=== PATIENT | female | born 1965 | race Caucasian/White ===

== ENCOUNTER → 2024-02-01 13:12 | Outpatient (REF) | payer OTHER, SELFPAY | LOC: RAD 13:12 | PROVIDERS: ATTENDING PHYSICIAN Internal Medicine | DX: R53.83 Other fatigue (principal); R06.02 Shortness of breath | CPT/HCPCS: 71046 ==

== ENCOUNTER → 2024-03-21 08:15 | Outpatient (REF) | payer OTHER, SELFPAY | LOC: RSP 08:15 | PROVIDERS: ATTENDING PHYSICIAN Internal Medicine Rheumatology; FAMILY PHYSICIAN Physician Assistant | DX: R06.02 Shortness of breath (principal) | CPT/HCPCS: 94727; 94729; 88738; 94060 ==

== ENCOUNTER → 2024-03-25 10:19 | Outpatient (REF) | payer OTHER, SELFPAY | LOC: RCS 10:19 | PROVIDERS: ATTENDING PHYSICIAN Internal Medicine Rheumatology; FAMILY PHYSICIAN Physician Assistant | DX: R06.02 Shortness of breath (principal) | CPT/HCPCS: 93306 ==

== ENCOUNTER → 2024-05-07 07:12 | Outpatient (REF) | payer OTHER, SELFPAY | LOC: MRI 07:12 | PROVIDERS: ATTENDING PHYSICIAN Internal Medicine; FAMILY PHYSICIAN Physician Assistant | DX: M54.59 Other low back pain (principal); M47.817 Spondylosis without myelopathy or radiculopathy, lumbosacral region; M54.16 Radiculopathy, lumbar region | CPT/HCPCS: 72148 ==

== ENCOUNTER 2025-04-15 22:26 | Emergency (ER) | payer OTHER, SELFPAY ==
[2025-04-15 22:34] VITALS: BP 146/86
[2025-04-16 00:06] VITALS: BP 114/77; BMI 36.5
[2025-04-16 01:08] VITALS: BP 106/57
[2025-04-16 01:14] VITALS: BP 106/57
[2025-04-16 02:57] LABS: Hematocrit 38.3 % (37.0-47.0); Hemoglobin 13.7 g/dL (12.0-16.0); Mean Corp Hgb Conc. 35.8 g/dL (33.0-37.0); Mean Corpuscular Volume 87.6 fL (81.0-99.0); Nucleated Red Blood Cells % 0 %; Platelet Count 214 10^3/uL (130-400); Red Cell Dist. Width 13.2 % (11.5-14.5)
[2025-04-16 03:17] LABS: ALT (SGPT) 24 U/L (0-35); AST (SGOT) 22 U/L (14-36); Albumin 4.3 g/dl (3.5-5.0); Alkaline Phosphatase 85 U/L (38-126); Blood Urea Nitrogen 20 mg/dl (7-17); Calcium 9.1 mg/dl (8.4-10.2); Carbon Dioxide 27 mmol/L (22-30); Chloride 106 mmol/L (98-107); Estimated Creatinine Clearance 86 ml/min; Glucose 101 mg/dl (70-99); Potassium 3.3 mmol/L (3.5-5.1); Sodium 138 mmol/L (135-145); Total Protein 7.0 g/dl (6.3-8.2); eGFR > 60.00
[2025-04-16 03:30] VITALS: BP 121/67
--- NOTE | 2025-04-16 03:31 | ED.GENMED ---
History of Present Illness
General
Chief Complaint: Vascular Symptoms
Source: patient
Exam Limitations: none
Time Seen by Provider: 04/16/25 01:46
Nursing documentation reviewed up to this point in time: agreed with
History of Present Illness
History of Present Illness:
Note:
CHIEF COMPLAINT(S)
Left arm pain and swelling, with a concern for circulation issues.
HISTORY OF PRESENT ILLNESS
The patient is a 59-year-old female who presented with discomfort and swelling in the left arm, described as a burning pain associated with a prominent, bulging vein observed after cleaning up while outside with her dog. The pain and swelling have
been present since this morning. The patient recounted that the vein appeared bent and swollen for approximately a half hour. She expressed concern that the appearance of the vein and subsequent bruising may indicate an underlying issue. The patient
denied any trauma, fall, or heavy lifting prior to the symptom onset. Additionally, she reported episodic leg cramping, particularly noted today while out with her grandchildren, making walking challenging. She mentioned previous episodes of low
potassium levels and wondered if this could be related.
PHYSICAL EXAM
- Cardiovascular: Palpable pulses were evaluated and described as great pulses by the patient.
- Nursing notes reviewed and vital signs reviewed.
PROBLEM LIST
Acute Problems:
- Left arm pain and swelling
- Episodic leg cramping
PLAN
- Apply a splint to the affected arm to minimize movement.
- Schedule follow-up with a vascular specialist to assess circulation and rule out venous issues.
- Perform laboratory work to evaluate the possibility of low potassium and other potential causes of muscle cramps.
DIFFERENTIAL DIAGNOSIS
The Differential Diagnosis includes, in no particular order and is not limited to:
- Superficial vein thrombophlebitis
- Hematoma
- Deep vein thrombosis
- Venous insufficiency
- Peripheral artery disease
- Electrolyte imbalance (e.g., hypokalemia)
- Muscle strain
- Varicose veins
- Raynauds phenomenon
- Neuropathy
CARE-UPDATE
04/16/25 - 03:48
Ultrasound results were normal. Patient reports increased difficulty with ambulation due to leg discomfort, experiencing pain while walking short distances. Although there is no current chest pain, the patient experienced transient shortness of
breath perceived to be anxiety-related . The patient also noted persistent headaches potentially related to a known pituitary tumor, which have been more bothersome today. Discussed symptoms may require further assessment by vascular surgery, given
possible link to leg discomfort. No immediate need for medication for headache as patient prefers to manage with [id number] options later.
EKG
My independent EKG interpretation is:
- Rhythm: Normal sinus rhythm
- Heart Rate: 68 beats per minute
- Intervals: Normal
- [place]: Normal
- Abnormalities: None observed
- Overall Impression: Normal EKG
Disposition:
SUMMARY OF ENCOUNTER
The patient is a 59-year-old female presenting with wrist swelling and hematoma. She expressed concern about possible circulation issues, although she was previously evaluated and was negative for deep vein thrombosis (DVT). The patient also
reported experiencing muscle aches and suspected an electrolyte imbalance, for which she had a history of low potassium. She received potassium supplementation and is now feeling better. Despite the symptoms, the patient declined further imaging
studies at this time. Additionally, the patient has a known pituitary tumor and is under the care of her family physician for this condition. Patient does understand that without further imaging at this time potential diagnosis can be missed.
PLAN
- Monitor the affected arms swelling and pain, using a splint to reduce movement.
- Follow up with a vascular specialist as previously recommended to further assess and rule out any venous issues.
- Continue following up with her family physician regarding the pituitary tumor.
- Encourage maintaining electrolyte balance, considering her history of low potassium levels.
INDEPENDENT REVIEW OF LABS AND INTERPRETATION OF TESTS
My independent review of patients potassium levels showed they were slightly low, consistent with her history of low potassium.
PATIENT EDUCATION AND COUNSELING
The patient was informed about the importance of monitoring symptoms and seeking further care if the swelling or pain increases. She was also educated on maintaining electrolyte balance and advised to continue her follow-up with her family doctor
for her pituitary tumor.
FOLLOW-UP INSTRUCTIONS
The patient was advised to schedule a follow-up with a vascular specialist to assess circulation concerns further. She should also follow up with her primary care provider to monitor her pituitary condition and overall health.
MEDICAL DECISION MAKING
-Complexity of Data Reviewed: Chronic conditions affecting care include the pituitary tumor and history of electrolyte imbalance. Differential diagnoses considered include superficial vein thrombophlebitis, hematoma, deep vein thrombosis, venous
insufficiency, peripheral artery disease, electrolyte imbalance (e.g., hypokalemia), muscle strain, varicose veins, Raynauds phenomenon, and neuropathy.
-Data:
Category 1
Reviewed patients recent negative DVT evaluation.
Independent review of potassium levels.
Category 3
Patient declined further imaging; the decision was respected based on clinical presentation and current stability.
DIAGNOSIS
- Wrist swelling and hematoma, unspecified upper extremity (M25.439)
- Hypokalemia (E87.6)
- Pituitary tumor (D44.3)
Past History
Past History
ED Past Medical History: GERD, HTN, Other (Melanoma, endometriosis, ovarian cyst), Other (Irritable bowel disease, mild cervical disc disease) and Other (Pituitary tumor)
ED Past Surgical History: Gynecological (Laparoscopy for endometriosis, ovarian cyst removal, hysterectomy) and Other (Skin cancer removal from back)
Social History
Tobacco: Non-smoker
Alcohol: Occasional
Drug: None
Personal:
Living: with family
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
Family History
Family History: Hypertension; Negative Diabetes
Review of Systems
Review of Systems
Allergies reviewed?: Yes
All Other Systems: ROS reviewed and negative except as documented in HPI and ROS
Constitutional: Reports no symptoms
EENT: Reports no symptoms
Respiratory: Reports no symptoms
Cardiac: Reports no symptoms
ABD/GI: Reports no symptoms
: Reports no symptoms
Musculoskeletal: Reports joint pain (Left wrist pain and swelling with a hematoma)
Skin: Reports no symptoms
Neurological: Reports no symptoms
Endocrine: Reports no symptoms
Hematologic/Lymphatic: Reports no symptoms
Psychiatric: Reports no symptoms
Phy Exam
Physical Exam
Physical Exam:
Physical Exam
Vital signs and allergy list reviewed and agreed with.
GENERAL: Alert , in minimal apparent distress
EYE: pupils equal, EOMI, anicteric
NECK: Supple, no significant adenopathy. No masses. Trachea midline
ENT: Oropharynx is clear, mmm.
CARDIAC: Regular rate and rhythm . No M/R/G
LUNGS: Clear breath sounds bilaterally, no acute respiratory distress, no wheezes/rales/rhonchi
ABDOMEN: Soft, without focal tenderness, no r/g
NEUROLOGICAL: Alert and oriented, no focal neuro deficits
SKIN: Warm and dry, skin intact. Hematoma to the left wrist
MUSCULOSKELETAL: No edema, well perfused. Moves all 4 extremities
PSYCH: Normal and appropriate interaction.
Course
Orders/Labs/Results
Orders:
Orders
04/16/25 02:20
US Arms, Left [US Periph Venous UPPER Ext LT] Urgent
Comment:
Reason For Exam: swelling at wrist, prob hematoma
04/16/25 02:24
Complete Blood Count/With Diff Urgent
Comprehensive Metabolic Panel Urgent
04/16/25 03:32
Potassium Chloride 10% Elixir [KCl Elixir] 40 meq PO NOW STA
Potassium Chloride [KCl] 20 meq PO NOW STA
04/16/25 03:49
Electrocardiogram (*1) Urgent
Reason for Study: Shortness of Breath
EKG- Treatment ONCE
Abnormal Lab Results
04/16/25
02:24
MCH 31.4 H pg
(27.0-31.0)
MPV 10.9 H fL
(7.4-10.4)
Absolute Monos (auto) 0.8 H 10^3/uL
(0.1-0.6)
Potassium 3.3 L mmol/L
(3.5-5.1)
BUN 20 H mg/dl
(7-17)
Glucose 101 H mg/dl
(70-99)
04/16/25 02:24
04/16/25 02:24
Vital Signs
Initial and Last Documented VS:
Initial Vital Signs
Temp Pulse Resp BP Pulse Ox
98.4 F 105 20 146/86 99
04/15/25 22:34 04/15/25 22:34 04/15/25 22:34 04/15/25 22:34 04/15/25 22:34
Last Documented Vital Signs
Temp Pulse Resp BP Pulse Ox
97.9 F 70 16 121/67 100
04/16/25 01:14 04/16/25 03:30 04/16/25 03:30 04/16/25 03:30 04/16/25 03:31
*Pulse Oximetry
SaO2: 100
Oxygen Mode of Delivery: Room air
Patient hypoxic: no
*Critical Care Note
Total Time (30-74mins, 75-104mins- exclusive of procedures): Not Applicable
Update Note
Update Note:
NAME: ROBEL DE LA ROSA
DATE OF EXAM: 04/16/2025
Patient No: [id number]
Physician: TRESA
Date of : 1965
Past Medical History (entered by Technologist):
Reason For Exam (entered by Technologist):
Other Notes (entered by Technologist):
Additional Information (per [facility] Radiologist):
Swelling
Ultrasound venous Doppler left upper extremity
IMPRESSION:
Negative for DVT
The results were faxed/finalized only at 325 AM ET. If you would like to discuss this case directly, please call [phone] (extension [phone]). If you can't reach me at this number, do not leave a voicemail. Please call [phone] ext [phone] and ask
for the next available Radiologist.
Jordon Rodgers MD
ED Attending Note
-
Portions of this chart may have been created with voice recognition software.� Occasional wrong word or��sound alike� substitutions may have occurred due to the inherent limitations of voice recognition software.
Discharge Plan
Departure
Patient Disposition: Home (Routine Discharge)
Date of Disposition: 04/16/25
Time of Disposition: 04:44
Patient with high blood pressure during this ER visit?: Yes
Condition: Good
Discharge Problem:
Hematoma of left wrist
Instructions: Taking care of bruises, Minor contusion - ED discharge instructions, BLOOD PRESSURE
Prescriptions:
No Action
multivitamin [Daily Multiple] 1 EACH tablet
1 ea PO DAILY
Lisinopril/Hydrochlorothiazide
1 tab PO DAILY
Referrals:
Davonte Brannon MD [Active, Vascular Surgery]
UNKNOWN - PT DOES,NOT KNOW [Family Provider]
Stand Alone Forms: Return to Work
Activity Restrictions/Additional Instructions:
Thank You for choosing [facility].
It was a pleasure meeting you and taking part in your care. We hope for your continued healing and wellness.
Please read discharge instructions in their entirety. However, they are for general education and may not describe your exact diagnosis at discharge. Information on your ER visit and medical conditions were discussed with you along with appropriate
follow up information...
If indicated, please take your medications as instructed and indicated on discharge paperwork.
Please schedule a follow up appointment as directed. Call to schedule an appointment
Please return to the emergency department with ANY change in, persisting, or worsening of symptoms. If any of your symptoms do not improve, or persist, or become more severe within 6-12 hours, please return to the emergency department for further
care.
Please return to the emergency department if you develop a headache, neck pain/stiffness, fever greater than 100.4F, chest pain, shortness of breath, persistent nausea, vomiting, slurred speech, difficulty walking, numbness/tingling, weakness, signs
of infection or any other symptoms that are worrisome to you.
If you have any questions or concerns please do not hesitate to call the Hospital at or E-mail me directly at [email or web address]
Interventions
Interventions:
*Risk Screen - Suicide Last Done: 04/15/25 22:34
*General Assessment Last Done: 04/15/25 22:34
*Neglect/Abuse Screening Last Done: 04/15/25 22:34
*ED- Fall Risk Assessment Last Done: 04/16/25 00:07
*ED COVID-19 Vaccine History Last Done: 04/16/25 00:07
ED- Cardiac Assessment Last Done: 04/16/25 00:07
ED- Pulmonary Assessment Last Done: 04/16/25 00:07
ED-Peripheral Vascular Assessment Last Done: 04/16/25 00:07
ED-Skin Assessment Last Done: 04/16/25 00:07
Discharge Date and Time
Print Language: ESTONIAN
[2025-04-16] MEDS: KCL 20 MEQ PO (03:42)
== END 2025-04-16 05:01 | disposition home or self-care (01) ==
LOC: EMR 22:26
PROVIDERS: EMERGENCY PHYSICIAN Student in an Organized Health Care Education/Training Program
DX: S60.212A Contusion of left wrist, initial encounter (principal); M79.89 Other specified soft tissue disorders; R06.02 Shortness of breath; M79.602 Pain in left arm; R51.9 Headache, unspecified; X58.XXXA Exposure to other specified factors, initial encounter; D49.7 Neoplasm of unspecified behavior of endocrine glands and other parts of nervous system; M79.7 Fibromyalgia; Z85.828 Personal history of other malignant neoplasm of skin; Z91.040 Latex allergy status; Z88.0 Allergy status to penicillin; Z88.2 Allergy status to sulfonamides; Z88.8 Allergy status to other drugs, medicaments and biological substances; Z91.048 Other nonmedicinal substance allergy status
CPT/HCPCS: 99284; 80053; 85025; 93005; 93971